=== PATIENT | female | born 1965 | race Caucasian/White ===

== ENCOUNTER → 2017-11-19 11:31 | Outpatient (CLI) | payer BC, SELFPAY ==
[2017-11-23 12:39] LABS: HPV Reflexed? NOT INDICATED
== END ==
PROVIDERS: Visit Provider Obstetrics & Gynecology
DX: Z12.4 Encounter for screening for malignant neoplasm of cervix (principal)
CPT/HCPCS: 88175; G0145

== ENCOUNTER → 2018-01-07 06:20 | Outpatient (CLI) | payer BC, SELFPAY ==
[2018-01-07 07:08] LABS: Absolute Lymphocyte Count 1.98 X10^3/ul (0.83-4.51); Basophil# 0.05 X10^3/uL; Basophil% 0.7 % (0-1); Eosinophil# 0.16 X10^3/uL; Eosinophils% 2.4 % (0-5); Hematocrit 40.9 % (37-47); Hemoglobin 14.2 g/dl (12.0-15.0); Lymphocyte # 1.98 X10^3/ul (4.0); Lymphocyte % 29.2 % (19-41); Mean Corp Hgb Conc 34.7 g/gl (32-36); Mean Corpuscular Hgb 32.1 pg (27.0-32.0); Mean Corpuscular Volume 92.3 fL (81-99); Mean Platelet Vol. 10.7 fl (6.2-12.0); Monocyte# 0.58 X10^3/uL; Monocyte% 8.5 % (0-10); Neutrophil # 4.01 X10^3/uL (2.7-7.7); Neutrophil % 59.1 % (47-70); Platelet Count 260 K/mm3 (150-450); Red Blood Count 4.43 M/mm3 (4.2-5.4); White Blood Count 6.8 K/mm3 (4.4-11.0)
[2018-01-07 07:10] LABS: POSITIVE COUNT NO; POSITIVE DIFFERENTIAL NO; POSITIVE MORPHOLOGY NO
[2018-01-07 07:50] LABS: ALB/GLOB Ratio 1.1 RATIO (0.9-2.4); AST(SGOT) 32 U/L (15-37); Alanine Aminotransfer ALT/SGPT 53 U/L (13-56); Albumin, Serum 3.9 g/dL (3.2-5.0); Alkaline Phosphatase 74 U/L (45-117); Anion Gap 9 (5-15); BUN 16 mg/dL (7-18); BUN/Creat Ratio 17.7 RATIO (10-20); Calcium,Total 8.8 mg/dL (8.5-10.1); Chloride 102 mmol/L (98-107); Cholesterol 143 mg/dL (200); EST Glomerular Filtration Rate 70 mL/min (>60); Est Glom Filt Rate - Afr Amer 84 mL/min (>60); Globulin 3.6 g/dL (2.2-4.2); Glucose 141 mg/dL (74-106); High Density Lipoprotein 40 mg/dL; Potassium 3.4 mmol/L (3.5-5.1); Protein, Total 7.5 g/dL (6.4-8.2); Sodium Level 138 mmol/L (136-145); T4 Free Direct 1.18 ng/dL (0.76-1.46); Triglycerides 162 mg/dL; Very Low Density Lipoprotein 32 mg/dL (5-40)
[2018-01-07 10:05] LABS: T3 Total - Triiodothyronine 1.15 ng/mL (0.6-1.81)
== END ==
PROVIDERS: Family Provider Family Medicine; PCP Family Medicine; Visit Provider Family Medicine
DX: E03.9 Hypothyroidism, unspecified (principal); E78.00 Pure hypercholesterolemia, unspecified; R53.83 Other fatigue
CPT/HCPCS: 36415; 80053; 80061; 84439; 84443; 84480; 85025

== ENCOUNTER 2018-01-17 06:51 | Day surgery (SDC) | payer BC, SELFPAY ==
[2018-01-17 07:10] VITALS: BP 125/67; PULSE 94; RESP 16; TEMP 37.1; O2SAT 98; BMI 30.9
[2018-01-17 08:36] VITALS: BP 104/56; BP 125/67; PULSE 78; RESP 16; TEMP 37.1; O2SAT 97
[2018-01-17 08:40] VITALS: BP 110/60; BP 125/67; PULSE 72; RESP 16; O2SAT 97
[2018-01-17 08:45] VITALS: BP 114/70; BP 125/67; PULSE 75; RESP 16; O2SAT 97
[2018-01-17 08:50] VITALS: BP 116/68; BP 125/67; PULSE 75; RESP 16; TEMP 36.4; O2SAT 98
[2018-01-17 09:30] VITALS: BP 125/67
--- NOTE | 2018-01-17 10:15 | PCM.OPRPT ---
Report of Operation Date of Procedure: 01/17/18 Pre-Operative Diagnosis: Screening for colon cancer Post-Operative Diagnosis: Normal colon Surgery/Procedure Performed:: Colonoscopy Type of Anesthesia:: MAC Anesthesiologist: Brendon Blackburn Specimen's removed: None Estimated Blood Loss (mL): None Description of Procedure: Procedure: Colonoscopy After reviewing the risks benefits, the patient was deemed in satisfactory condition to undergo procedure. After obtaining informed consent, the scope was passed under direct visualization. Throughout the procedure, the patient's blood pressure pulse and position saturations were monitored continuously anesthesia. The colonoscope was introduced through the anus and advanced to the cecum, identified by the appendiceal orifice, IC valve and transillumination. The colonoscopy was performed without difficulty. The patient tolerated procedure well. Quality of bowel prep was good. Findings: The perianal and digital rectal exam were normal. The colon (entire examined portion) appeared normal. Retroflexed view of the distal rectum and anal verge was normal and showed no anal or rectal abnormalities Impression: 1. The entire colon is normal. 2. The distal rectal and anal verge were normal on retroflexed view. Recommendations: Repeat colonoscopy in 10 years for screening purposes - Complications none
== END 2018-01-17 09:30 | disposition home or self-care (01) ==
LOC: EN 06:52 → AC 06:53
PROVIDERS: Family Provider Family Medicine; PCP Family Medicine; Visit Provider Surgery
PROC: 0DJD8ZZ Inspection of Lower Intestinal Tract, Via Natural or Artificial Opening Endoscopic (ICD-10-PCS; CPT 45378; principal; 2018-01-17 07:55)
DX: Z12.11 Encounter for screening for malignant neoplasm of colon (principal); E78.5 Hyperlipidemia, unspecified; E03.9 Hypothyroidism, unspecified; I10 Essential (primary) hypertension; Z79.899 Other long term (current) drug therapy
CPT/HCPCS: 45378; J7120

== ENCOUNTER → 2018-02-03 17:30 | Outpatient (CLI) | payer BC, SELFPAY ==
--- NOTE | 2018-02-03 17:45 | BI_ITS ---
MAMMOGRAPHY - BILATERAL SCREENING REASON FOR EXAM: Female, 52 years old. Routine annual screening examination. PERTINENT HISTORY: Non-contributory. Prior bilateral breast reduction surgery. TECHNIQUE: Digital bilateral breast michel (3D mammographic acquisition) in the CC and MLO projections. 2-D mediolateral oblique (MLO) and craniocaudad (CC) views of both breasts were obtained. CAD: Full Field Digital Mammography with Computer Added Detection was performed. COMPARISON: Comparison is made with prior study dated February 02, 2017 and January 31, 2016. FINDINGS: Breast Composition: There are scattered areas of fibroglandular density. There are no dominant masses or suspicious calcifications. Stable benign-appearing small bilateral axillary lymph nodes. No other significant abnormalities are identified. There has been no significant change since the prior study. BI/SCREENING MAMM (CAD), BILAT IMPRESSION: Stable bilateral screening mammogram. Yearly follow-up mammogram recommended. (A) ASSESSMENT CATEGORY: BIRADS Category 2: Benign. A letter regarding these results will be sent to the patient by the facility within 30 days. Approximately 10% of breast cancers are not detected by mammography. A normal mammogram should not delay biopsy of a clinically suspicious abnormality. [id number] Electronically Signed: Justino Almazan MD at 8:54 EDT Tel [phone], Service support ,
== END ==
PROVIDERS: Family Provider Family Medicine; PCP Family Medicine; Visit Provider Obstetrics & Gynecology
DX: Z12.31 Encounter for screening mammogram for malignant neoplasm of breast (principal)
CPT/HCPCS: 77063; 77067

== ENCOUNTER → 2018-12-02 10:16 | Outpatient (CLI) | payer BC, SELFPAY ==
[2018-12-06 11:06] LABS: HPV Reflexed? NOT INDICATED
== END ==
PROVIDERS: Family Provider Family Medicine; PCP Family Medicine; Referring Provider Obstetrics & Gynecology; Visit Provider Obstetrics & Gynecology
DX: Z12.4 Encounter for screening for malignant neoplasm of cervix (principal)
CPT/HCPCS: 88175; G0145

== ENCOUNTER → 2018-12-26 | Outpatient (CLI) | payer BC, SELFPAY ==
[2018-12-26 06:39] LABS: Absolute Lymphocyte Count 2.25 X10^3/ul (0.83-4.51); Absolute Neutrophil Count 4.9 X10^3/uL (2.0-7.7); Basophil# 0.06 X10^3/uL; Basophil% 0.7 % (0-1); Eosinophil# 0.22 X10^3/uL; Eosinophils% 2.7 % (0-5); Hematocrit 40.9 % (37-47); Hemoglobin 13.8 g/dl (12.0-15.0); Lymphocyte # 2.25 X10^3/ul (4.0); Lymphocyte % 27.4 % (19-41); Mean Corp Hgb Conc 33.7 g/gl (32-36); Mean Corpuscular Hgb 30.6 pg (27.0-32.0); Mean Corpuscular Volume 90.7 fL (81-99); Mean Platelet Vol. 10.2 fl (6.2-12.0); Monocyte# 0.72 X10^3/uL; Monocyte% 8.8 % (0-10); Neutrophil # 4.91 X10^3/uL (2.7-7.7); Neutrophil % 59.9 % (47-70); Platelet Count 268 K/mm3 (150-450); RBC Distribution Width CV 12.3 % (11.6-14.6); Red Blood Count 4.51 M/mm3 (4.2-5.4); White Blood Count 8.2 K/mm3 (4.4-11.0)
[2018-12-26 06:46] LABS: POSITIVE COUNT NO; POSITIVE DIFFERENTIAL NO; POSITIVE MORPHOLOGY NO
[2018-12-26 07:08] LABS: ALB/GLOB Ratio 1.1 RATIO (0.9-2.4); AST(SGOT) 28 U/L (15-37); Alanine Aminotransfer ALT/SGPT 40 U/L (13-56); Alkaline Phosphatase 91 U/L (45-117); Anion Gap 8 (5-15); BUN 13 mg/dL (7-18); BUN/Creat Ratio 13.8 RATIO (10-20); Calcium,Total 8.7 mg/dL (8.5-10.1); Chloride 101 mmol/L (98-107); Cholesterol 156 mg/dL (200); Creatinine, Serum 0.94 mg/dL (0.55-1.02); EST Glomerular Filtration Rate 66 mL/min (>60); Est Glom Filt Rate - Afr Amer 80 mL/min (>60); Free T3 2.9 pg/mL (2.18-3.98); Globulin 3.6 g/dL (2.2-4.2); Glucose 167 mg/dL (74-106); High Density Lipoprotein 41 mg/dL; Potassium 3.3 mmol/L (3.5-5.1); Protein, Total 7.6 g/dL (6.4-8.2); Sodium Level 139 mmol/L (136-145); T4 Free Direct 1.35 ng/dL (0.76-1.46); Thyroid Stim Hormone (TSH) 3.49 uIU/mL (0.358-3.74); Triglycerides 154 mg/dL; Very Low Density Lipoprotein 31 mg/dL (5-40)
== END | disposition home or self-care (01) ==
LOC: LAB.FUTURE 06:05
PROVIDERS: Family Provider Family Medicine; PCP Family Medicine; Referring Provider Family Medicine; Visit Provider Family Medicine
DX: E03.9 Hypothyroidism, unspecified (principal); E78.5 Hyperlipidemia, unspecified; Z51.81 Encounter for therapeutic drug level monitoring
CPT/HCPCS: 36415; 80053; 80061; 84439; 84443; 84481; 85025

== ENCOUNTER → 2019-02-10 | Outpatient (CLI) | payer BC, SELFPAY ==
--- NOTE | 2019-02-10 07:52 | BI_ITS ---
MAMMOGRAPHY - BILATERAL SCREENING REASON FOR EXAM: Female, 53 years old. Routine annual screening examination. PERTINENT HISTORY: Non-contributory. History of bilateral breast reduction surgery. TECHNIQUE: Digital bilateral breast michel (3D mammographic acquisition) in the CC and MLO projections. 2-D mediolateral oblique (MLO) and craniocaudad (CC) views of both breasts were obtained. CAD: Full Field Digital Mammography with Computer Added Detection was performed. COMPARISON: Comparison is made with prior study dated February 03, 2018 and February 02, 2017. FINDINGS: Breast Composition: There are scattered areas of fibroglandular density. There are no dominant masses or suspicious calcifications. Stable bilateral axillary lymph nodes. No other significant abnormalities are identified. There has been no significant change since the prior study. BI/SCREENING MAMM (CAD), BILAT IMPRESSION: Stable bilateral screening mammogram. Yearly follow-up mammogram recommended. (A) ASSESSMENT CATEGORY: BIRADS Category 1: Negative. A letter regarding these results will be sent to the patient by the facility within 30 days. Approximately 10% of breast cancers are not detected by mammography. A normal mammogram should not delay biopsy of a clinically suspicious abnormality. [id number] Electronically Signed: Justino Almazan, at 9:31 EDT , Service support ,
== END | disposition home or self-care (01) ==
LOC: OPBI 07:50
PROVIDERS: Family Provider Family Medicine; PCP Family Medicine; Referring Provider Obstetrics & Gynecology; Visit Provider Obstetrics & Gynecology
DX: Z12.31 Encounter for screening mammogram for malignant neoplasm of breast (principal)
CPT/HCPCS: 77063; 77067

== ENCOUNTER → 2020-02-09 11:53 | Outpatient (CLI) | payer BC, SELFPAY ==
[2020-02-15 11:23] LABS: HPV APTIMA, High Risk Negative (Negative)
== END ==
PROVIDERS: PCP Family Medicine; Referring Provider Obstetrics & Gynecology; Visit Provider Obstetrics & Gynecology
DX: Z12.4 Encounter for screening for malignant neoplasm of cervix (principal)
CPT/HCPCS: 87624; 88175; G0145

== ENCOUNTER → 2020-02-20 | Outpatient (CLI) | payer BC, SELFPAY ==
--- NOTE | 2020-02-20 16:20 | BI_ITS ---
MAMMOGRAPHY - BILATERAL SCREENING REASON FOR EXAM: Female, 54 years old. Routine annual screening examination. PERTINENT HISTORY: Non-contributory. History of prior bilateral breast reduction surgery. TECHNIQUE: Digital bilateral breast latha (3D mammographic acquisition) in the CC and MLO projections. 2-D mediolateral oblique (MLO) and craniocaudad (CC) views of both breasts were obtained. CAD: Full Field Digital Mammography with Computer Added Detection was performed. COMPARISON: Comparison is made with prior examination dated February 10, 2019 and February 03, 2018. FINDINGS: Breast Composition: There are scattered areas of fibroglandular density. There are no dominant masses or suspicious calcifications. Stable benign-appearing bilateral axillary lymph nodes. No other significant abnormalities are identified. There has been no significant change since the prior study. BI/SCREEN MAMM (CAD) W/LATHA BILAT IMPRESSION: Stable bilateral screening mammogram. Yearly follow-up mammogram recommended. (A) ASSESSMENT CATEGORY: BIRADS Category 2: Benign. A letter regarding these results will be sent to the patient by the facility within 30 days. Approximately 10% of breast cancers are not detected by mammography. A normal mammogram should not delay biopsy of a clinically suspicious abnormality. [id number] Electronically Signed: Justino Almazan, at 9:22 EDT , Service support ,
== END | disposition home or self-care (01) ==
LOC: OPBI 16:20
PROVIDERS: PCP Family Medicine; Referring Provider Obstetrics & Gynecology; Visit Provider Obstetrics & Gynecology
DX: Z12.31 Encounter for screening mammogram for malignant neoplasm of breast (principal)
CPT/HCPCS: 77063; 77067

== ENCOUNTER → 2020-10-30 07:15 | Outpatient (CLI) | payer BC, SELFPAY ==
[2020-10-30 08:26] LABS: Absolute Lymphocyte Count 2.55 X10^3/uL (0.83-4.51); Absolute Neutrophil Count 4.2 X10^3/uL (2.0-7.7); Basophil# 0.07 X10^3/uL; Basophil% 0.9 % (0-1); Eosinophil# 0.19 X10^3/uL; Eosinophils% 2.5 % (0-5); Hematocrit 40.4 % (37-47); Hemoglobin 13.7 g/dL (12.0-15.0); Lymphocyte # 2.55 X10^3/ul (4.0); Lymphocyte % 33.2 % (19-41); Mean Corp Hgb Conc 33.9 g/dL (32-36); Mean Corpuscular Hgb 30.7 pg (27.0-32.0); Mean Corpuscular Volume 90.6 fL (81-99); Mean Platelet Vol. 10.5 fl (6.2-12.0); Monocyte# 0.67 X10^3/uL; Monocyte% 8.7 % (0-10); NRBC Flagged by Analyzer 0 % (0-5); Neutrophil # 4.17 X10^3/uL (2.7-7.7); Neutrophil % 54.3 % (47-70); Platelet Count 266 K/mm3 (150-450); RBC Distribution Width CV 12.2 % (11.6-14.6); RBC Distribution Width SD 39.9 fl (35.1-43.9); Red Blood Count 4.46 M/mm3 (4.2-5.4); White Blood Count 7.7 K/mm3 (4.4-11.0)
[2020-10-30 08:56] LABS: Microalbumin,Random Urine 12.4 mg/L (NO RANGE EST.); Microalbumin:Creatinine Ratio 7.7 mg/g CRE (<30 mg/g CRE)
[2020-10-30 09:08] LABS: ALB/GLOB Ratio 1.1 RATIO (0.9-2.4); AST(SGOT) 24 U/L (15-37); Alanine Aminotransfer ALT/SGPT 43 U/L (13-56); Albumin, Serum 3.9 g/dL (3.2-5.0); Alkaline Phosphatase 94 U/L (45-117); Anion Gap 5 (5-15); BUN 16 mg/dL (7-18); BUN/Creat Ratio 17.7 RATIO (10-20); Calcium,Total 9.2 mg/dL (8.5-10.1); Chloride 98 mmol/L (98-107); Cholesterol 160 mg/dL (200); EST Glomerular Filtration Rate 69 mL/min (>60); Est Glom Filt Rate - Afr Amer 83 mL/min (>60); Free T3 3.3 pg/mL (2.18-3.98); Globulin 3.6 g/dL (2.2-4.2); Glucose 173 mg/dL (74-106); High Density Lipoprotein 41 mg/dL; Potassium 3.4 mmol/L (3.5-5.1); Protein, Total 7.5 g/dL (6.4-8.2); Sodium Level 136 mmol/L (136-145); T4 Free Direct 1.85 ng/dL (0.76-1.46); Thyroid Stim Hormone (TSH) 0.02 uIU/mL (0.358-3.74); Triglycerides 175 mg/dL; Very Low Density Lipoprotein 35 mg/dL (5-40)
== END ==
PROVIDERS: PCP Family Medicine; Referring Provider Family Medicine; Visit Provider Family Medicine
DX: E03.9 Hypothyroidism, unspecified (principal); E11.9 Type 2 diabetes mellitus without complications; I10 Essential (primary) hypertension; Z51.81 Encounter for therapeutic drug level monitoring
CPT/HCPCS: 36415; 80053; 80061; 82043; 82570; 84439; 84443; 84481; 85025

== ENCOUNTER → 2021-01-13 07:26 | Outpatient (CLI) | payer BC, SELFPAY ==
--- NOTE | 2021-01-13 07:39 | RAD_ITS ---
STUDY: X-RAY - ABDOMEN/PELVIS REASON FOR EXAM: Female, 55 years old. ABD PAIN R/O KIDNEY STONE TECHNIQUE: Single AP view of the abdomen / pelvis. COMPARISON: None. FINDINGS: Normal visualized lung bases. There is an abundance of fecal material throughout the colon. The visualized liver, spleen and kidneys are grossly normal in size and morphology. Clips from bilateral tubal ligation are seen. A small calcified phlebolith is seen in the right hemipelvis. There are degenerative changes of the visualized lumbar spine. RAD/Abdomen Single View IMPRESSION: Large amount of fecal material is seen in the colon. Electronically Signed: Justino Almazan MD at 9:48 EDT , Service support ,
[2021-01-13 08:55] LABS: Free T3 2.9 pg/mL (2.18-3.98); T4 Free Direct 1.51 ng/dL (0.76-1.46); Thyroid Stim Hormone (TSH) 0.08 uIU/mL (0.358-3.74)
== END ==
PROVIDERS: PCP Family Medicine; Referring Provider Family Medicine; Visit Provider Family Medicine
DX: E03.9 Hypothyroidism, unspecified (principal); R10.9 Unspecified abdominal pain; R10.12 Left upper quadrant pain
CPT/HCPCS: 36415; 74018; 84439; 84443; 84481

== ENCOUNTER → 2021-02-18 16:52 | Outpatient (CLI) | payer BC, SELFPAY ==
--- NOTE | 2021-02-18 16:56 | CT_ITS ---
STUDY: CT ABDOMEN AND PELVIS WITH CONTRAST REASON FOR EXAM: Female, 55 years old. Left lower quadrant and left upper quadrant abdominal pain pelvic pain diverticulitis constipation RADIATION DOSAGE (If Supplied By Facility): CTDIvol = ( 15.54 ) mGy, DLP = ( 857.59 ) mGycm TECHNIQUE: CT images were obtained from the dome of the diaphragm to the symphysis pubis without oral contrast. Oral and amp; IV Readi-CAT and amp; 100mL Isovue-300 was administered. Sagittal and coronal images were reconstructed. Individualized dose optimization techniques were used for this CT. COMPARISON: None. FINDINGS: The visualized lung bases are unremarkable. The visualized portions of the heart are within normal limits. Normal liver. Normal gallbladder and extrahepatic biliary system. Normal spleen. Normal pancreas. Normal bilateral adrenal glands. Normal right kidney. Normal left kidney. Normal visualized stomach. Normal small intestine. Normal colon. The appendix is visualized and appears normal. Normal abdominal aorta. Normal inferior vena cava. Normal retroperitoneum. Normal urinary bladder. Normal abdominal wall. Normal osseous structures. CT/Abdomen/Pelvis WITH Contrast IMPRESSION: Normal enhanced CT of the abdomen and pelvis. Electronically Signed: Mildred Em MD at 18:48 EDT Tel , Service support ,
== END ==
PROVIDERS: PCP Family Medicine; Referring Provider Family Medicine; Visit Provider Family Medicine
DX: R10.32 Left lower quadrant pain (principal); R10.12 Left upper quadrant pain; R10.2 Pelvic and perineal pain; Z87.19 Personal history of other diseases of the digestive system
CPT/HCPCS: 74177; Q9967

== ENCOUNTER → 2021-06-06 | Outpatient (CLI) | payer BC, SELFPAY ==
[2021-06-10 18:37] LABS: HPV APTIMA, High Risk Negative (Negative)
== END | disposition home or self-care (01) ==
LOC: LABSPEC 10:13
PROVIDERS: PCP Family Medicine; Visit Provider Obstetrics & Gynecology
DX: Z12.4 Encounter for screening for malignant neoplasm of cervix (principal)
CPT/HCPCS: 87624; 88175; G0145

== ENCOUNTER → 2021-07-01 07:16 | Outpatient (CLI) | payer BC, SELFPAY ==
--- NOTE | 2021-07-01 07:37 | BI_ITS ---
MAMMOGRAPHY - BILATERAL SCREENING REASON FOR EXAM: Female, 56 years old. Routine annual screening examination. PERTINENT HISTORY: Non-contributory. History of prior bilateral breast reduction surgery. TECHNIQUE: Digital bilateral breast latha (3D mammographic acquisition) in the CC and MLO projections. 2-D mediolateral oblique (MLO) and craniocaudad (CC) views of both breasts were obtained. CAD: Full Field Digital Mammography with Computer Added Detection was performed. COMPARISON: Comparison is made with prior study dated 02/20/2020 and 02/10/2019. FINDINGS: Breast Composition: There are scattered areas of fibroglandular density. There are no dominant masses or suspicious calcifications. Stable benign-appearing bilateral axillary lymph nodes. No other significant abnormalities are identified. There has been no significant change since the prior study. BI/SCRN MAMM (CAD)W/LATHA BILAT IMPRESSION: Stable bilateral screening mammogram. Yearly follow-up mammogram recommended. (A) ASSESSMENT CATEGORY: BIRADS Category 2: Benign. A letter regarding these results will be sent to the patient by the facility within 30 days. Approximately 10% of breast cancers are not detected by mammography. A normal mammogram should not delay biopsy of a clinically suspicious abnormality. [id number] Electronically Signed: Justino Almazan MD at 9:00 EDT , Service support ,
== END ==
PROVIDERS: PCP Family Medicine; Referring Provider Obstetrics & Gynecology; Visit Provider Obstetrics & Gynecology
DX: Z12.31 Encounter for screening mammogram for malignant neoplasm of breast (principal)
CPT/HCPCS: 77063; 77067

== ENCOUNTER → 2022-02-03 | Outpatient (CLI) | payer BC, SELFPAY ==
[2022-02-03 08:37] LABS: Absolute Lymphocyte Count 1.87 X10^3/uL (0.83-4.51); Absolute Neutrophil Count 4.9 X10^3/uL (2.0-7.7); Basophil# 0.06 X10^3/uL; Basophil% 0.8 % (0-1); Eosinophil# 0.16 X10^3/uL; Eosinophils% 2.1 % (0-5); Hematocrit 40.1 % (37-47); Hemoglobin 13.8 g/dL (12.0-15.0); Lymphocyte # 1.87 X10^3/ul (0.83-4.51); Lymphocyte % 24.8 % (19-41); Mean Corp Hgb Conc 34.4 g/dL (32-36); Mean Corpuscular Hgb 31.2 pg (27.0-32.0); Mean Corpuscular Volume 90.7 fL (81-99); Mean Platelet Vol. 10.4 fl (6.2-12.0); Monocyte# 0.51 X10^3/uL; Monocyte% 6.8 % (0-10); NRBC Flagged by Analyzer 0 % (0-5); Neutrophil # 4.92 X10^3/uL (2.7-7.7); Neutrophil % 65.1 % (47-70); Platelet Count 274 K/mm3 (150-450); RBC Distribution Width CV 11.7 % (11.6-14.6); RBC Distribution Width SD 38.8 fl (35.1-43.9); Red Blood Count 4.42 M/mm3 (4.2-5.4); White Blood Count 7.6 K/mm3 (4.4-11.0)
[2022-02-03 08:50] LABS: Hemoglobin A1c 6.6 % (3.8-5.6)
[2022-02-03 08:53] LABS: Microalbumin,Random Urine 9.1 mg/L (NO RANGE EST.); Microalbumin:Creatinine Ratio 6.5 mg/g CRE (<30 mg/g CRE)
[2022-02-03 09:11] LABS: ALB/GLOB Ratio 1.1 RATIO (0.9-2.4); AST(SGOT) 27 U/L (15-37); Alanine Aminotransfer ALT/SGPT 41 U/L (13-56); Albumin, Serum 3.9 g/dL (3.2-5.0); Alkaline Phosphatase 85 U/L (45-117); Anion Gap 8 (5-15); BUN 14 mg/dL (7-18); BUN/Creat Ratio 14.2 RATIO (10-20); Calcium,Total 8.8 mg/dL (8.5-10.1); Chloride 102 mmol/L (98-107); Cholesterol 150 mg/dL (200); Creatinine, Serum 0.99 mg/dL (0.55-1.02); EST Glomerular Filtration Rate 62 mL/min (>60); Est Glom Filt Rate - Afr Amer 75 mL/min (>60); Free T3 2.8 pg/mL (2.18-3.98); Globulin 3.4 g/dL (2.2-4.2); Glucose 203 mg/dL (74-106); High Density Lipoprotein 39 mg/dL; Potassium 3.4 mmol/L (3.5-5.1); Protein, Total 7.3 g/dL (6.4-8.2); Sodium Level 138 mmol/L (136-145); T4 Free Direct 1.48 ng/dL (0.76-1.46); Thyroid Stim Hormone (TSH) 0.18 uIU/mL (0.358-3.74); Triglycerides 133 mg/dL; Very Low Density Lipoprotein 27 mg/dL (5-40)
== END | disposition home or self-care (01) ==
LOC: LAB 07:45
PROVIDERS: PCP Family Medicine; Referring Provider Family Medicine; Visit Provider Family Medicine
DX: E03.9 Hypothyroidism, unspecified (principal); E11.9 Type 2 diabetes mellitus without complications; I10 Essential (primary) hypertension; E78.5 Hyperlipidemia, unspecified; Z51.81 Encounter for therapeutic drug level monitoring
CPT/HCPCS: 36415; 80053; 80061; 82043; 82570; 83036; 84439; 84443; 84481; 85025

== ENCOUNTER → 2022-06-23 | Outpatient (CLI) | payer BC, SELFPAY ==
[2022-06-23 09:06] LABS: Free T3 2.9 pg/mL (2.18-3.98); T4 Free Direct 1.28 ng/dL (0.76-1.46); Thyroid Stim Hormone (TSH) 0.46 uIU/mL (0.358-3.74)
== END | disposition home or self-care (01) ==
LOC: LAB 07:36
PROVIDERS: PCP Family Medicine; Visit Provider Family Medicine
DX: E03.9 Hypothyroidism, unspecified (principal)
CPT/HCPCS: 36415; 84439; 84443; 84481

== ENCOUNTER → 2022-10-26 | Outpatient (CLI) | payer OTHER, SELFPAY ==
--- NOTE | 2022-10-26 08:02 | BI_ITS ---
MAMMOGRAPHY - BILATERAL SCREENING REASON FOR EXAM: Female, 57 years old. Routine annual screening examination. PERTINENT HISTORY: Non-contributory. History of prior bilateral breast reduction surgery. TECHNIQUE: Digital bilateral breast latha (3D mammographic acquisition) in the CC and MLO projections. 2-D mediolateral oblique (MLO) and craniocaudad (CC) views of both breasts were obtained. CAD: Full Field Digital Mammography with Computer Added Detection was performed. COMPARISON: Comparison is made with prior study dated 07/01/2021 and 02/20/2020. FINDINGS: Breast Composition: The breasts are almost entirely fatty. There are no dominant masses or suspicious calcifications. Stable small benign-appearing bilateral axillary lymph nodes. No other significant abnormalities are identified. There has been no significant change since the prior study. BI/SCRN MAMM (CAD)W/LATHA BILAT IMPRESSION: Stable bilateral screening mammogram. Yearly follow-up mammogram recommended. (A) ASSESSMENT CATEGORY: BIRADS Category 2: Benign. A letter regarding these results will be sent to the patient by the facility within 30 days. Approximately 10% of breast cancers are not detected by mammography. A normal mammogram should not delay biopsy of a clinically suspicious abnormality. [id number] Electronically Signed: Justino Almazan MD at 13:05 EST ,
== END | disposition home or self-care (01) ==
LOC: OPBI 08:00
PROVIDERS: PCP Family Medicine; Referring Provider Family Medicine; Visit Provider Family Medicine
DX: Z12.31 Encounter for screening mammogram for malignant neoplasm of breast (principal)
CPT/HCPCS: 77063; 77067

== ENCOUNTER 2023-03-09 17:48 | Emergency (ER) | payer OTHER, SELFPAY ==
[2023-03-09 17:49] VITALS: BP 161/82; PULSE 80; RESP 18; TEMP 36.6; O2SAT 98; BMI 25.2
--- NOTE | 2023-03-09 18:10 | EX.ED.UPPERE ---
HPI History of Present Illness Chief Complaint: Laceration Informant: patient Narrative Narrative: Patient presents with a laceration to her left ring finger. Shortly before arrival patient was cutting bread at home and excellently cut the tip of her left ring finger. Bleeding is controlled. No blood thinners. Unknown last tetanus. No other injury. Pressure made it better nothing makes it worse. She has no loss of function or range of motion. [facility] Medical History HTN (hypertension) Hyperlipemia Vertigo Home Medications hydrochlorothiazide 25 mg tablet 25 mg PO DAILY 06/06/15 [History Last Taken Unknown] labetalol 200 mg tablet 200 mg PO DAILY 06/06/15 [History Last Taken 01/17/18 05:00] levothyroxine 100 mcg tablet 200 mcg PO DAILY 06/06/15 [History Last Taken 01/17/18 05:00] rosuvastatin 40 mg tablet (Crestor) 40 mg PO DAILY 06/06/15 [History Last Taken Unknown] buspirone 5 mg tablet 5 mg PO DAILY 03/09/23 [History Last Taken Unknown] Allergy/AdvReac Type Severity Reaction Status Date / Time Penicillins Allergy Swelling Verified 01/07/18 14:44 Family History Mother Thyroid disorder Hypertension Surgical History H/O bilateral breast reduction surgery H/O thyroidectomy Tubal ligation status Social History household members: family and children housing: house current occupational status: employed and retired Smoking Status: Never smoker ROS ROS ED Constitutional Constitutional ED: Denies chills or fever(s) Gastrointestinal Gastrointestinal: Denies nausea or vomiting Musculoskeletal Musculoskeletal: Reports other Details: See history of present illness. Integumentary Reports other Details: See history of present illness Neurologic Neurologic: Denies paresthesias or weakness Hematologic/Lymphatic Hematologic/Lymphatic: Denies easy bleeding or easy bruising EXAM Physical Exam Narrative Exam Narrative: Patient awake alert sitting comfortably in bed. HEENT shows no sign of trauma or injury. Cardiorespiratory shows easy unlabored breathing. Extremities show bandage on the left ring finger. This is taken off. She has a 1.5 cm laceration across the very tip. This goes from the corner of the nail across the distal tuft. No active bleeding at this time. Sensation is intact. Full extensor and flexor tendon functions are intact. No other areas of injury. Const Vital Signs: 03/09/23 17:49 Temperature 97.8 F Temperature Source Temporal Pulse Rate 80 Respiratory Rate 18 Blood Pressure 161/82 H Blood Pressure Mean 108 Pulse Ox 98 Oxygen Delivery Method Room Air Procedures Lacerations Left ring finger: Depth: Sub Q Shape: Linear Prep: [place] Laceration repair: Digital block Irrigated (ml): 100 Number of Sutures/[place]: 3 Suture Information: Ethilon, Simple and 5-0 Comment: 0.5% Marcaine 1.5 cc total digital block copiously scrubbed and irrigated. Sutured with good cosmesis and hemostasis using 3 interrupted 5-0 Ethilon. I discussed signs of infection and reasons to follow-up as well as timing of suture removal. Discharge Plan Triage Chief Complaint: Laceration ED Provider: Corbin Mistry Dx/Rx/DC Orders Clinical Impression: Laceration of left index finger, Sutured skin wound Instructions: ED Laceration: All Closures Prescriptions: No Action labetalol 200 MG tablet 200 mg PO DAILY Label Comments: HIGH BLOOD PRESSURE levothyroxine 100 MCG tablet 200 mcg PO DAILY Label Comments: THYROID hydrochlorothiazide 25 MG tablet 25 mg PO DAILY Label Comments: HIGH BLOOD PRESSURE rosuvastatin [Crestor] 40 MG tablet 40 mg PO DAILY Label Comments: CHOLESTEROL buspirone 5 mg tablet 5 mg PO DAILY Label Comments: TAKE ONE TABLET BY MOUTH AT BEDTIME FOR 1 WEEK THEN INCREASE TO ONE TABLET TWICE A DAY Primary Care Provider: Flor Yang Referrals: Flor Yang DO [Primary Care Provider] - 10 Day for suture removal Disposition Disposition: Home, Self Care
[2023-03-09] MEDS: Diphth,Pertuss(Acell),Tet Vac 0.5 ML Vial IM (18:19)
[2023-03-09] MEDS: Bupivacaine Mpf 0.5% 30 ML VIAL INFILT (19:22)
[2023-03-09 19:23] VITALS: RESP 16
--- NOTE | 2023-03-09 19:24 | ED.RN ---
PER DR. SANDY VERBAL ORDER, PT OKAY WITH BACITRACIN AND BANDAIDS ON WOUND PRIOR TO DISCHARGE.
== END 2023-03-09 19:24 | disposition home or self-care (01) ==
LOC: ED 18:17
PROVIDERS: Emergency Provider Emergency Medicine; PCP Family Medicine; Visit Provider Emergency Medicine
DX: S61.215A Laceration without foreign body of left ring finger without damage to nail, initial encounter (principal); E78.5 Hyperlipidemia, unspecified; I10 Essential (primary) hypertension; Z79.899 Other long term (current) drug therapy; Z23 Encounter for immunization
CPT/HCPCS: 12001; 90471; 90715; 99283

== ENCOUNTER → 2023-06-10 | Outpatient (CLI) | payer OTHER, SELFPAY ==
--- NOTE | 2023-06-10 13:50 | CT_ITS ---
INDICATION: SUBMANDIBULAR NECK MASS LEFT SIDE -- BB MARKER PLACED AT SITE EXAMINATION: CT NECK WITH CONTRAST - CT Soft Tissue Neck W/ Contrast Injection TECHNIQUE: Helically acquired images were obtained of the neck with sagittal and coronal reconstructed images. Individualized dose optimization techniques were used for this CT. IV contrast dosage and agent: 100 mL of Isovue 300. COMPARISON: 10/13/2017 CT. FINDINGS: NASOPHARYNX: Unremarkable. SUPRAHYOID NECK: Unremarkable oropharynx, oral cavity, parapharyngeal space, and retropharyngeal space. INFRAHYOID NECK: Unremarkable larynx, hypopharynx, and supraglottis. THYROID: Status post thyroidectomy. No mass identified within the thyroid fossa. SALIVARY GLANDS: Unremarkable. LYMPH NODES: Left submandibular prominent lymph node measuring 0.6 x 1.1 cm, stable as compared to the prior CT. Stable smaller adjacent lymph node. VASCULAR STRUCTURES: Unremarkable. VISUALIZED PORTIONS OF THE ORBITS, PARANASAL SINUSES, MASTOID AIR CELLS AND SKULL BASE: Unremarkable. BONES: Unremarkable. THORACIC INLET: Visualized lung apices are clear. CT/Soft Tissue Neck WITH Contrast IMPRESSION: Stable left submandibular lymph nodes as compared to 03/13/2018. No pathologically enlarged lymph nodes and no evidence of a mass. Electronically Signed: Alon Foster DO at 4:34 EDT ,
== END | disposition home or self-care (01) ==
LOC: CT 13:47
PROVIDERS: PCP Family Medicine; Referring Provider Otolaryngology; Visit Provider Otolaryngology
DX: R22.1 Localized swelling, mass and lump, neck (principal)
CPT/HCPCS: 70491; Q9967

== ENCOUNTER → 2023-06-18 | Outpatient (CLI) | payer OTHER, SELFPAY ==
--- NOTE | 2023-06-18 | ASPOS_PTH ---
PATIENT: DAVID BREEN LOC: LAB U#:[id number] AGE/SX: 58/F ROOM: RE06/18/[address]: Dr. Gonzalez Mata MD : 1965 BED: DIS: 06/18/2023 SPEC #: [id number] RECD: 06/18/23 11:03 STATUS: STERLING DAYRON #: [id number] CELINE: 06/18/23 00:[address]: Gonzalez Mata DEPT: CYTOLOGY RECD BY: Kimberly Escobar ENTERED: 06/18/23 11:05 SP TYPE: ASP HERE OTHR DR: Dr. Flor Yang, DO Tissues: Mandible, NOS Procedures: Surgery Specimen Level IV Cytology Other Fine Needle Asp on Site HEADER OPERATION: Fine needle aspiration left submandibular gland area PRE-OP DIAGNOSIS: Left neck mass TISSUE SUBMITTED: Left submandibular gland area DIAGNOSIS CYTOLOGY Fine needle aspiration, left submandibular gland mass (smears and cell block): Mature adipose tissue present. See comment. AM:caden 06/21/2023 COMMENT A fine needle aspiration was performed and the specimen is evaluated at the time of FNA by Dr. Hurt. Immediate Evaluation = Mature adipose tissue. No evidence of malignancy. The lesion may represent a lymph node replaced by mature fat. There is no evidence of malignancy. Clinical correlation is suggested. CYTOLOGY STUDY Slides are reviewed. CYTOLOGY GROSS Received is 0.2 ml of garcia-yellow material labeled with the patient's name, and designated left submandibular gland area. Two imprints are made from the submitted fluid and the rest is added to CytoLyt for cell block preparation. Submitted for cytology study. / AM:caden 06/18/2023 TC:5 CPT: 84694, 46830, 39714, 57890
== END | disposition home or self-care (01) ==
PROVIDERS: PCP Family Medicine; Referring Provider Otolaryngology; Visit Provider Otolaryngology
DX: R22.1 Localized swelling, mass and lump, neck (principal)
CPT/HCPCS: 10021; 88161; 88305

== ENCOUNTER 2023-08-30 16:44 | Emergency (ER) | payer OTHER, SELFPAY ==
[2023-08-30 16:44] VITALS: BP 153/88; PULSE 77; RESP 16; TEMP 36.4; O2SAT 99; BMI 30.1
--- NOTE | 2023-08-30 18:01 | EDS_ITS ---
HPI <GIULIANA Ramirez - Last Filed: 08/30/23 18:19> History of Present Illness Chief Complaint: Laceration Narrative Narrative: At 3:30 PM patient was closing the trunk of her car when the trunk accidentally hit the top of her forehead. No LOC. No blood thinners. She has had a headache and briefly had nausea. No vomiting. No vision changes. She states her tetanus is up-to-date. PFSH <GIULIANA Ramirez - Last Filed: 08/30/23 18:19> PFSH Medical History HTN (hypertension) Hyperlipemia Vertigo Home Medications hydrochlorothiazide 25 mg tablet 25 mg PO DAILY 06/06/15 [History Last Taken Unknown] labetalol 200 mg tablet 200 mg PO DAILY 06/06/15 [History Last Taken 01/17/18 05:00] levothyroxine 100 mcg tablet 200 mcg PO DAILY 06/06/15 [History Last Taken 01/17/18 05:00] rosuvastatin 40 mg tablet (Crestor) 40 mg PO DAILY 06/06/15 [History Last Taken Unknown] buspirone 5 mg tablet 5 mg PO DAILY 03/09/23 [History Last Taken Unknown] Allergy/AdvReac Type Severity Reaction Status Date / Time Penicillins Allergy Swelling Verified 08/30/23 16:46 Family History Mother Thyroid disorder Hypertension Surgical History H/O bilateral breast reduction surgery H/O thyroidectomy Tubal ligation status Social History household members: family and children housing: house current occupational status: employed and retired Smoking Status: Never smoker ROS <GIULIANA Ramirez - Last Filed: 08/30/23 18:19> ROS ED ROS Narrative Eyes: Negative for visual change. GI: Positive for nausea, no vomiting. Neuro: Positive for headache, negative for motor/sensory dysfunction. Skin: Positive for wound. EXAM <GIULIANA Ramirez - Last Filed: 08/30/23 18:19> Physical Exam Narrative Exam Narrative: CONST: Patient sitting in no acute distress. EYES: Normal inspection. Head: 1 cm laceration midline frontal scalp in the hairline. It is clotted and closed with no gaping. Small hematoma, no deformity or crepitus, no raccoon eyes or King sign, no nasal septal hematoma or epistaxis, no hemotympanum, no CSF otorrhea or rhinorrhea. NECK: Normal inspection. No midline spinal tenderness, no step off or crepitus. RESP: No respiratory distress, CTAB. CVS: Regular rate and rhythm, no murmur, no gallop. EXTREMITIES: Normal appearance, no pedal edema. NEURO: Oriented x4. PSYCH: Normal affect. Const Vital Signs: 08/30/23 16:44 Temperature 97.6 F L Temperature Source Temporal Pulse Rate 77 Respiratory Rate 16 Blood Pressure 153/88 H Blood Pressure Mean 109 Pulse Ox 99 Oxygen Delivery Method Room Air <Edgar Hutchinson MD - Last Filed: 08/30/23 21:20> Physical Exam Const Vital Signs: 08/30/23 16:44 Temperature 97.6 F L Temperature Source Temporal Pulse Rate 77 Respiratory Rate 16 Blood Pressure 153/88 H Blood Pressure Mean 109 Pulse Ox 99 Oxygen Delivery Method Room Air MDM <GIULIANA Ramirez - Last Filed: 08/30/23 18:19> [facility] Narrative Medical decision making narrative: Patient struck the top of her forehead with her car trunk. She has a 1 cm laceration that is already clotted and closed. There is a minor hematoma. She has no signs of basilar skull fracture and is not on blood thinners. According to [place] CT head rules she does not require imaging. Wound was cleansed and it is very small and already approximated and does not require closure. Her te tanus is up-to-date. She was given head injury return precautions and discharged in stable condition. <Edgar Hutchinson MD - Last Filed: 08/30/23 21:20> [facility] Narrative Medical decision making narrative: Patient struck the top of her forehead with her car trunk. She has a 1 cm laceration that is already clotted and closed. There is a minor hematoma. She has no signs of basilar skull fracture and is not on blood thinners. According to Ethiopian CT head rules she does not require imaging. Wound was cleansed and it is very small and already approximated and does not require closure. Her tetanus is up-to-date. She was given head injury return precautions and discha rged in stable condition. Dr. Hutchinson: I have personally performed a face to face assessment of the patient and have reviewed the ZAIRA Note. I performed a substantive portion of the visit including all aspects of the following. My billy findings include: History is hit forehead and hairline on latch Exam is GCS 15. ABCs intact. 1 cm laceration running vertically in hairline and middle of forehead. No active bleeding. Medical Decision Making: Closed head injury instructions. I do not feel that this is amenable to suture closure as it is not gaping and her wound is already closed. Bacitracin dressing will be applied. Discharge. Other additions or changes: [None] Discharge Plan Triage Chief Complaint: Laceration ED Midlevel Provider: Flor Perdomo ED Provider: Edgar Hutchinson Dx/Rx/DC Orders Clinical Impression: Closed head injury, Laceration of scalp Instructions: Concussion Dc Prescriptions: No Action labetalol 200 MG tablet 200 mg PO DAILY Patient Comments: HIGH BLOOD PRESSURE levothyroxine 100 MCG tablet 200 mcg PO DAILY Patient Comments: THYROID hydrochlorothiazide 25 MG tablet 25 mg PO DAILY Patient Comments: HIGH BLOOD PRESSURE rosuvastatin [Crestor] 40 MG tablet 40 mg PO DAILY Patient Comments: CHOLESTEROL buspirone 5 mg tablet 5 mg PO DAILY Patient Comments: TAKE ONE TABLET BY MOUTH AT BEDTIME FOR 1 WEEK THEN INCREASE TO ONE TABLET TWICE A DAY Primary Care Provider: Flor Yang Referrals: Flor Yang DO [Primary Care Provider] - Activity Restrictions/Additional Instructions: Take Tylenol Motrin as needed. If your headache severely worsens or you develop vomiting or confusion return to the ER. Disposition Disposition: Home, Self Care Discharge Date/Time: 08/30/23 18:29
== END 2023-08-30 18:29 | disposition home or self-care (01) ==
LOC: ED 18:20
PROVIDERS: Emergency Provider Emergency Medicine; PCP Family Medicine; Visit Provider Emergency Medicine
DX: S01.01XA Laceration without foreign body of scalp, initial encounter (principal); I10 Essential (primary) hypertension; E78.5 Hyperlipidemia, unspecified; W20.8XXA Other cause of strike by thrown, projected or falling object, initial encounter
CPT/HCPCS: 99282

== ENCOUNTER → 2023-09-16 | Outpatient (CLI) | payer OTHER, SELFPAY ==
--- OUTSIDE RECORDS SUMMARY | 2023-09-16 09:14 | XMS RPT_ITS | CCD ---
Author Name Unknown Address [address] [place] [address] Organization [facility] Results Test Name Value Interpretation Reference Range Facil ity Progress note 05-27-2021 Note Date & Type Note Facility 05-27-2021 Note HNO ID: [id number] Author: Prashanth Farris APRN.RN SURGICAL PCU Service: ? Author Type: Nurse Practitioner Type: Progress Notes Filed: 05/27/2021 8:18 AM Note Text: Subjective HPI HPI Jessica Lima is a 56 year old female who presents today for suture removal, placed 9 days ago. Attempted to [facility], 2 removed and started gaping, told to wait few days before removing the rest. Denies redness, drainage, pain at site. .Patient presents with: Suture Removal: head x 9 days, ? 4 left PAST MEDICAL HISTORY Diagnosis Date - Lesa's disease - HTN (hypertension) - Hyperlipidemia - Vertigo PAST SURGICAL HISTORY Procedure Laterality Date - DELIVERY ONLY 2 - REDUCTION OF LARGE BREAST 06/2008 - THYROIDECTOMY 06-13-15 ALLERGIES Penicillins Reviewed MEDICATIONS levothyroxine (SYNTHROID) 150 mcg tablet Take 1 tablet by mouth daily before breakfast. hydrochlorothiazide (HYDRODIURIL, ESIDRIX) 25 mg tablet Take 25 mg by mouth once daily. rosuvastatin (CRESTOR) 40 mg tablet Take 40 mg by mouth once daily. labetalol (TRANDATE) 200 mg tablet Take 200 mg by mouth once daily. reviewed FAMILY HISTORY Problem Relation Age of Onset - Allergies Mother - Cancer Father - Heart Mother - Hypertension Mother - Thyroid Mother Social History Tobacco Use - Smoking status: Never Smoker - Smokeless tobacco: Never Used Substance Use Topics - Alcohol use: Yes Comment: Socially - Drug use: No ROS Objective Blood pressure 124/72, pulse 76, temperature 36.4 ?C (97.6 ?F), resp. rate 16, weight 80.3 kg (177 lb), SpO2 97 %. Physical Exam Constitutional: General: She is not in acute distress. Appearance: She is not toxic-appearing or diaphoretic. HENT: Head: Normocephalic and atraumatic. Pulmonary: Effort: Pulmonary effort is normal. No accessory muscle usage or respiratory distress. Neurological: Mental Status: She is alert and oriented to person, place, and time. ASSESSMENT/PLAN: 1. Visit for suture removal - ICD9: V58.32, ICD10: Z48.02 4 sutures removed intact Leave steri strip on for few days then either remove or let fall off. F/u for s/s infection. Prashanth Farris APRN.[facility] Summary Purpose Family History No Family History Records FoundNo Family History Records Found Advance Directives No Advanced Directives Records FoundNo Advanced Directives Records Found Additional Source Comments INFORMATION SOURCE (unrecogn ized section and content) DATE CREATED AUTHOR AUTHOR'S ORGANIZ ATION 11/12/2021 [facility] FOR RECORDS PERTAINING TO PATIENTS WHO ARE OR HAVE BEEN ENROLLED IN A CHEMICAL DEPENDENCY/SUBSTANCEABUSE PROGRAM, SOME INFORMATION MAY BE OMITTED. This clinical summary was aggregated from multiple sources. Caution should be exercised in using it in the provision of clinical care. This summary normalizes information from multiple sources, and as a consequence, information in this document may materially change the coding, format and clinical context of patient data. In addition, data may be omitted in some cases. CLINICAL DECISIONS SHOULD BE BASED ON THE PRIMARY CLINICAL RECORDS. [facility] [employer] provides no warranty or guarantee of the accuracy or completeness of information in this document.
[2023-09-16 10:09] LABS: Absolute Lymphocyte Count 2.15 X10^3/uL (0.83-4.51); Absolute Neutrophil Count 4.9 X10^3/uL (2.0-7.7); Basophil# 0.07 X10^3/uL; Basophil% 0.9 % (0-1); Eosinophil# 0.25 X10^3/uL; Eosinophils% 3.2 % (0-5); Hematocrit 44.1 % (37-47); Hemoglobin 14.4 g/dL (12.0-15.0); Lymphocyte # 2.15 X10^3/ul (0.83-4.51); Lymphocyte % 27.2 % (19-41); Mean Corp Hgb Conc 32.7 g/dL (32-36); Mean Corpuscular Hgb 30.1 pg (27.0-32.0); Mean Corpuscular Volume 92.3 fL (81-99); Mean Platelet Vol. 10.6 fl (6.2-12.0); Monocyte# 0.56 X10^3/uL; Monocyte% 7.1 % (0-10); NRBC Flagged by Analyzer 0 % (0-5); Neutrophil # 4.85 X10^3/uL (2.7-7.7); Neutrophil % 61.3 % (47-70); Platelet Count 273 K/mm3 (150-450); RBC Distribution Width CV 11.9 % (11.6-14.6); RBC Distribution Width SD 40.5 fl (35.1-43.9); Red Blood Count 4.78 M/mm3 (4.2-5.4); White Blood Count 7.9 K/mm3 (4.4-11.0)
[2023-09-16 10:32] LABS: Microalbumin,Random Urine 5.2 mg/L (NO RANGE EST.); Microalbumin:Creatinine Ratio 8.1 mg/g CRE (<30 mg/g CRE)
[2023-09-16 10:59] LABS: ALB/GLOB Ratio 1.2 RATIO (0.9-2.4); AST(SGOT) 30 U/L (15-37); Alanine Aminotransfer ALT/SGPT 50 U/L (13-56); Alkaline Phosphatase 85 U/L (45-117); Anion Gap 7 (5-15); BUN 13 mg/dL (7-18); BUN/Creat Ratio 15.7 RATIO (10-20); Calcium,Total 8.8 mg/dL (8.5-10.1); Chloride 103 mmol/L (98-107); Cholesterol 169 mg/dL (200); Creatinine, Serum 0.83 mg/dL (0.55-1.02); EST Glomerular Filtration Rate 75 mL/min (>60); Est Glom Filt Rate - Afr Amer 91 mL/min (>60); Free T3 3.2 pg/mL (2.18-3.98); Globulin 3.4 g/dL (2.2-4.2); Glucose 199 mg/dL (74-106); High Density Lipoprotein 51 mg/dL; Potassium 3.6 mmol/L (3.5-5.1); Protein, Total 7.4 g/dL (6.4-8.2); Sodium Level 140 mmol/L (136-145); T4 Free Direct 1.53 ng/dL (0.76-1.46); Thyroid Stim Hormone (TSH) 0.05 uIU/mL (0.358-3.74); Triglycerides 194 mg/dL; Very Low Density Lipoprotein 39 mg/dL (5-40)
== END | disposition home or self-care (01) ==
LOC: LAB 09:02
PROVIDERS: PCP Family Medicine; Referring Provider Family Medicine; Visit Provider Family Medicine
DX: E03.9 Hypothyroidism, unspecified (principal); E11.9 Type 2 diabetes mellitus without complications; E78.5 Hyperlipidemia, unspecified
CPT/HCPCS: 36415; 80053; 80061; 82043; 82570; 84439; 84443; 84481; 85025

== ENCOUNTER → 2024-07-03 | Outpatient (CLI) | payer BC, SELFPAY ==
[2024-07-03 17:50] LABS: Absolute Lymphocyte Count 2.74 X10^3/uL (0.83-4.51); Basophil# 0.09 X10^3/uL; Eosinophil# 0.21 X10^3/uL; Eosinophils% 2.4 % (0-5); Hematocrit 41.1 % (37-47); Hemoglobin 14.1 g/dL (12.0-15.0); Lymphocyte # 2.74 X10^3/ul (0.83-4.51); Lymphocyte % 31.1 % (19-41); Mean Corp Hgb Conc 34.3 g/dL (32-36); Mean Corpuscular Volume 90.3 fL (81-99); Mean Platelet Vol. 10.9 fl (6.2-12.0); Monocyte# 0.71 X10^3/uL; Monocyte% 8.1 % (0-10); NRBC Flagged by Analyzer 0 % (0-5); Neutrophil # 5.02 X10^3/uL (2.7-7.7); Neutrophil % 57.1 % (47-70); Platelet Count 294 K/mm3 (150-450); RBC Distribution Width CV 11.9 % (11.6-14.6); RBC Distribution Width SD 39.1 fl (35.1-43.9); Red Blood Count 4.55 M/mm3 (4.2-5.4); White Blood Count 8.8 K/mm3 (4.4-11.0)
[2024-07-03 18:36] LABS: ALB/GLOB Ratio 1.2 RATIO (0.9-2.4); AST(SGOT) 25 U/L (15-37); Alanine Aminotransfer ALT/SGPT 40 U/L (13-56); Albumin, Serum 4.2 g/dL (3.2-5.0); Alkaline Phosphatase 93 U/L (45-117); Anion Gap 10 (5-15); BUN 14 mg/dL (7-18); BUN/Creat Ratio 15.6 RATIO (10-20); Calcium,Total 9.8 mg/dL (8.5-10.1); Chloride 102 mmol/L (98-107); EST Glomerular Filtration Rate 68 mL/min (>60); Est Glom Filt Rate - Afr Amer 83 mL/min (>60); Free T3 2.5 pg/mL (2.18-3.98); Globulin 3.5 g/dL (2.2-4.2); Glucose 133 mg/dL (74-106); Potassium 3.3 mmol/L (3.5-5.1); Protein, Total 7.7 g/dL (6.4-8.2); Sodium Level 140 mmol/L (136-145); T4 Free Direct 1.29 ng/dL (0.76-1.46); Thyroid Stim Hormone (TSH) 0.393 uIU/mL (0.358-3.740)
== END | disposition home or self-care (01) ==
PROVIDERS: PCP Family Medicine; Referring Provider Family Medicine; Visit Provider Family Medicine
DX: Z51.81 Encounter for therapeutic drug level monitoring (principal); E03.9 Hypothyroidism, unspecified
CPT/HCPCS: 36415; 80053; 84439; 84443; 84481; 85025

== ENCOUNTER → 2024-07-10 | Outpatient (CLI) | payer BC, SELFPAY ==
--- NOTE | 2024-07-10 13:24 | BI_ITS ---
MAMMOGRAPHY - BILATERAL SCREENING REASON FOR EXAM: Female, 59 years old. Routine annual screening examination. PERTINENT HISTORY: Non-contributory. TECHNIQUE: Digital bilateral breast latha (3D mammographic acquisition) in the CC and MLO projections. 2-D mediolateral oblique (MLO) and craniocaudad (CC) views of both breasts were obtained. CAD: Full Field Digital Mammography with Computer Added Detection was performed. COMPARISON: Comparison is made with prior study August 25, 2023 and July 01, 2021. FINDINGS: Breast Composition: The breasts are almost entirely fatty. There are no dominant masses or suspicious calcifications. Stable bilateral fat-containing axillary lymph nodes. No other significant abnormalities are identified. There has been no significant change since the prior study. BI/SCRN MAMM (CAD)W/LATHA BILAT IMPRESSION: Stable bilateral screening mammogram. Yearly follow-up mammogram recommended. (A) ASSESSMENT CATEGORY: BIRADS Category 2: Benign. A letter regarding these results will be sent to the patient by the facility within 30 days. Approximately 10% of breast cancers are not detected by mammography. A normal mammogram should not delay biopsy of a clinically suspicious abnormality. [id number] Electronically Signed: Justino Almazan MD at 13:57 EDT ,
--- OUTSIDE RECORDS SUMMARY | 2024-07-10 14:23 | XMS RPT_ITS | CCD ---
Author Organization [employer] [facility] Results Test Name Value Interpretation Reference Range Facil ity CNOVon 05-27-2021 CNOV Office Visit (UCWSTR ) ----- NUHATOSHIA DAVIS ([id number]) 1965 F Date Time Provider Department 05/27/21 7:30 AM MARIEL FARRIS [facility] During your visit today, we recorded the following information about you: Temperature Pulse Respiration Blood pressure 97.6 degrees 76/minute 16/minute 124/72 Weight 80.3 kg Mariel Farris APRN.CNP 05/27/2021 8:18 AM Signed Subjective HPI HPI Toshia Breen is a 56 year old female who presents today for suture removal, placed 9 days ago. Attempted to have them taken out at [facility] few days ago, 2 removed and started [...] let fall off. F/u for s/s infection. Mariel Farris APRN.[employer] Referring Provider: SELF [200] Allergies As of Date: 05/27/2021 Noted Allergy Reaction PENICILLINS 05/01/2015 7 - Swelling 10 - Anaphylaxis Date Reviewed: 05/27/2021 Reviewed by: Sabrina Flores - Fully Assessed Reason for Visit: Suture Removal [105] Cmt: head x 9 days, ? 4 left Primary Visit Diagnosis:Visit for suture removal [Z48.02] Prescriptions as of 05/27/2021 - levothyroxine (SYNTHROID) 150 mcg tablet Take 1 tablet by mouth daily before breakfast. - hydrochlorothiazide (HYDRODIURIL, ESIDRIX) 25 mg tablet Take 25 mg by mouth once daily. - rosuvastatin (CRESTOR) 40 mg tablet Take 40 mg by mouth once daily. - labetalol (TRANDATE) 200 mg tablet Take 200 mg by mouth once daily. Problem List As Of Date 05/27/2021 Noted Resolved Obesity [E66.9] 12/20/2007 Left thyroid nodule [E04.1] 05/01/2015 Hypertension [I10] 05/01/2015 Hyperlipidemia [E78.5] 05/01/2015 Sleep apnea [G47.30] 05/01/2015 Hypothyroidism [E03.9] 08/07/2015 Encounter Status:Closed by MARIEL FARRIS on 05/27/21 Normal [facility] CT cervical spine wo conon 0 05-18-2021 CT cervical spine wo con [facility] [place] [address] CT Scan Report Signed Patient: Toshia Breen MR#: [id number] : 1965 Acct:[id number] Age/Sex: 56 / F ADM Date: 05/17/21 Loc: ER Room: Type: [facility] ER Attending Dr: Ordering Provider: Tate Burr DO Date of Service: 05/17/21 CT/CT cervical spine wo con: fall ([id number]) CT/CT facial bones wo con: fall ([id number]) CT/CT head/brain wo con: fall Copies to: Tate Burr DO CT head/brain wo con, CT facial bones wo con, CT cervical spine wo con 05/17/2021 7:44 PM SIGNS AND SYMPTOMS: Slipped and fell into both, laceration to right side of head TECHNIQUE:Multi-detector CT axial slices of the brain, facial bones, and cervical spine were obtained without IV contrast. Helical,sagittal, coronal, and 3-D reconstructions of the facial bones and cervical spine were performed. CT was performed with one or more of the following dose reduction techniques: Automated exposure control, adjustment of the mA and/or kV according to patient size, or use of iterative reconstruction technique. COMPARISON: None. FINDINGS: Noncontrast head CT: There is no shift of the midline structures, acute intracranial bleeding, mass effects, or evidence of acute ischemia. The ventricular system is normal in size. The brainstem and the cerebellum are unremarkable. The visualized intraorbital contents, the visualized paranasal sinuses, and the infratemporal soft tissues show no acute abnormality. The osseous structures in the skull base and the calvarium show no abnormality. There is a right frontal and temporal scalp hematoma with evidence of laceration. Facial Bones: Fracture: None. Paranasal sinuses and mastoids: Well aerated. Soft tissue swelling: Soft tissue swelling is noted over the right frontal and temporal scalp with evidence of laceration. Globes: Intact. Upper aerodigestive tract: Within normal limits. Joints: Intact. Temporal mandibular joints: Degenerative changes are noted in the temporal mandibular joints, left greater than right. Infratemporal fossa: Within normal limits. Cervical spine: There is preservation of the vertebral body heights. There is mild disc height loss at C3-C4 and C4-C5. There is moderate disc height loss at C5-C6 and C6-C7. There is ossification along the posterior longitudinal ligament at C3-C4 and C6-C7. This contributes to spinal canal stenosis. Facet and uncovertebral joint degenerative changes contribute to neural foraminal narrowing which is greatest on the right at C3-C4 and C5-C6. No fractures or dislocations are seen. The alignment of the cervical spine is normal. The craniocervical junction and atlantoaxial joint are within normal limits. The prevertebral soft tissues are within normal limits. The paraspinous soft tissues are within normal limits. The lung apices are unremarkable. CT/CT head/brain wo con IMPRESSION: Normal noncontrasted CT brain. No evidence of facial bone fracture. Soft tissue swelling and laceration is noted over the right frontal and temporal scalp. No acute cervical spine injury. Multilevel degenerative change of the cervical spine as discussed above contributing to spinal canal stenosis and neural foraminal narrowing. Impression dictated by: Pedro Davidson M.D.05/18/2021 9:21 AM Dictation Location: [place] [address] Transcribed By: [facility] 05/18/21920 Dictated By: Pedro Davidson II, MD 05/18/21 0852 Signed By: 05/18/21920 Normal [facility] XR foot RT min 3V*on 021 XR foot RT min 3V* [facility] [place] [address] XRay Report Signed Patient: Toshia Breen MR#: [id number] : 1965 Acct:[id number] Age/Sex: 56 / F ADM Date: 05/17/21 Loc: ER Room: Type: [facility] ER Attending Dr: Ordering Provider: Tate Burr DO Date of Service: 05/17/21 XR/XR foot RT min 3V*: Fall ([id number]) XR/XR ankle RT min 3V*: Fall Copies to: Tate Mayfield Aminah Right ankle and right foot 05/17/2021. CLINICAL DATA: Right ankle and right foot pain after fall. RIGHT ANKLE FINDINGS: 3 views of the right ankle were obtained. No acute fracture or dislocation is identified. No other bony abnormality is seen. No significant soft tissue swelling is noted. RIGHT FOOT FINDINGS: 3 views of the right foot were obtained. No acute fracture or dislocation is identified. No other bony abnormality is seen. No significant soft tissue swelling is noted. XR/XR ankle RT min 3V* IMPRESSION: No acute bony abnormality. Impression dictated by: Claude Grijalva Jr., M.D.05/18/2021 10:21 AM Dictation Location: [place] [address] Transcribed By: [facility] 05/18/21 1021 Dictated By: Claude Grijalva Jr, MD 05/18/21 1017 Signed By: 05/18/21 1021 [facility] Progress note 05-27-2021 Note Date & Type Note Facility 05-27-2021 Note HNO ID: [id number] Author: Mariel Farris APRN.[employer] Service: ? Author Type: Nurse Practitioner Type: Progress Notes Filed: 05/27/2021 8:18 AM Note Text: Subjective HPI HPI Toshia Breen is a 56 year old female who presents today for suture removal, placed 9 days ago. Attempted to have them taken out at [facility] few days ago, 2 removed and started [...] let fall off. F/u for s/s infection. Mariel Farris APRN.[facility] Summary Purpose Family History No Family History Records FoundNo Family History Records Found Advance Directives No Advanced Directives Records FoundNo Advanced Directives Records Found Additional Source Comments INFORMATION SOURCE (unrecogn ized section and content) DATE CREATED AUTHOR 06/03/2021 [facility] DATE CREATED AUTHOR AUTHOR'S ORGANIZ ATION 11/12/2021 [facility] FOR RECORDS PERTAINING TO PATIENTS WHO ARE [...] BE BASED ON THE PRIMARY CLINICAL RECORDS. [facility] [employer] [facility] provides no warranty or guarantee of the accuracy or completeness of information in this document.
== END | disposition home or self-care (01) ==
LOC: OPBI 13:23
PROVIDERS: PCP Family Medicine; Referring Provider Family Medicine; Visit Provider Family Medicine
DX: Z12.31 Encounter for screening mammogram for malignant neoplasm of breast (principal)
CPT/HCPCS: 77063; 77067

== ENCOUNTER → 2025-03-06 | Outpatient (CLI) | payer BC, SELFPAY ==
[2025-03-06 10:07] LABS: Microalbumin,Random Urine < 12.0 mg/L (NO RANGE EST.); Microalbumin:Creatinine Ratio UNABLE TO CALCULATE mg/g CRE
[2025-03-06 15:15] LABS: ALB/GLOB Ratio 1.7 RATIO (0.9-2.4); AST(SGOT) 32 U/L (<=31); Alanine Aminotransfer ALT/SGPT 39 U/L (<=34); Albumin, Serum 4.3 g/dL (3.5-5.0); Alkaline Phosphatase 82 U/L (35-104); Anion Gap 9 (5-15); BUN 16 mg/dL (4-19); BUN/Creat Ratio 20.4 RATIO (10-20); Calcium,Total 9.3 mg/dL (7.6-11.0); Carbon Dioxide 29.5 mmol/L (21.0-32.0); Chloride 100 mmol/L (98-108); Creatinine, Serum 0.78 mg/dL (0.70-1.20); EST Glomerular Filtration Rate 88 (>60); Globulin 2.6 g/dL (2.2-4.2); Glucose 172 mg/dL (70-99); Potassium 3.8 mmol/L (3.3-5.1); Protein, Total 6.9 g/dL (5.9-8.4); Sodium Level 139 mmol/L (133-145); Thyroid Stim Hormone (TSH) 0.136 uIU/mL (0.300-4.200); Total Bilirubin 0.42 mg/dL (0.00-1.30)
== END | disposition home or self-care (01) ==
LOC: LAB 08:10
PROVIDERS: PCP Family Medicine; Referring Provider Family Medicine; Visit Provider Family Medicine
DX: E03.9 Hypothyroidism, unspecified (principal); E11.9 Type 2 diabetes mellitus without complications; I10 Essential (primary) hypertension; Z51.81 Encounter for therapeutic drug level monitoring
CPT/HCPCS: 36415; 80053; 82043; 82570; 84439; 84443; 84481

== ENCOUNTER → 2025-09-11 | Outpatient (CLI) | payer OTHER, SELFPAY ==
[2025-09-11 10:01] LABS: Hematocrit 40.6 % (37-47); Hemoglobin 14.1 g/dL (12.0-15.0); Immature Granulocytes Count 0.020 X10^3/uL (0.0-0.0); Mean Corp Hgb Conc 34.7 g/dL (32-36); Mean Corpuscular Volume 90.0 fL (81-99); Mean Platelet Vol. 10.5 fl (6.2-12.0); NRBC Flagged by Analyzer 0 % (0-5); Platelet Count 281 K/mm3 (150-450); RBC Distribution Width CV 11.7 % (11.6-14.6); RBC Distribution Width SD 38.3 fl (35.1-43.9); Red Blood Count 4.51 M/mm3 (4.2-5.4); White Blood Count 7.1 K/mm3 (4.4-11.0)
[2025-09-11 10:39] LABS: AST(SGOT) 37 U/L (<=31); Alanine Aminotransfer ALT/SGPT 50 U/L (<=34); Albumin, Serum 4.5 g/dL (3.5-5.0); Alkaline Phosphatase 79 U/L (35-104); Anion Gap 12 (7-18); BUN 14 mg/dL (4-19); BUN/Creat Ratio 16.9 RATIO (10-20); Calcium,Total 9.5 mg/dL (7.6-11.0); Carbon Dioxide 26.5 mmol/L (20.0-29.0); Chloride 99 mmol/L (96-106); Cholesterol 172 mg/dL (<=200); Globulin 2.8 g/dL (2.2-4.2); Glucose 217 mg/dL (70-99); Low Density Lipoprotein Calc. 97 mg/dL; Potassium 3.8 mmol/L (3.5-5.1); Triglycerides 163 mg/dL; Very Low Density Lipoprotein 33 mg/dL (5-40); cholesterol:hdl ratio screen 3.70
[2025-09-11 11:32] LABS: Free T3 2.7 pg/mL (2.18-3.98)
== END | disposition home or self-care (01) ==
LOC: MTLAB 07:44
PROVIDERS: PCP Family Medicine; Referring Provider Family Medicine; Visit Provider Family Medicine
DX: E03.9 Hypothyroidism, unspecified (principal); E11.9 Type 2 diabetes mellitus without complications; E78.5 Hyperlipidemia, unspecified
CPT/HCPCS: 36415; 80053; 80061; 83036; 84439; 84443; 84481; 85025